=== PATIENT | female | born 1960 | race Two or more races ===

== ENCOUNTER 2018-03-14 10:00 | Day surgery (SDC) | payer OTHER ==
[~2018-03-14] VITALS: Ht 162.6 cm; Wt 83.9 kg
[~2018-03-14 10:00] MED LIST: AMBIEN10 MG PO; CIPRO750 MG PO; Colace 100MG PO; METFORMIN HCL500 MG PO; NEURONTIN PO; NEURONTIN800 MG PO; TYLENOL W-CODEI1 TAB PO
[2018-03-15] MEDS ORDERED: DOCUSATE SODIU100 MG PO (08:21)
[2018-03-15] MEDS ORDERED: GABAPENTIN800 MG PO (08:21)
[2018-03-15] MEDS ORDERED: CLONAZEPAM1 MG PO (08:22)
[2018-03-15] MEDS ORDERED: CIPROFLOXACIN750 MG PO (08:22)
[2018-03-15] MEDS ORDERED: PERCOCET 5-3251 EACH PO (08:22)
== END 2018-03-15 08:00 | disposition home or self-care (01) ==
LOC: CIR.AMB 10:00 → SURH 12:00 → EDSTATUS 12:00 → SURH 16:45 → O/R 18:37 → PED 18:37 → CIR.AMB 03-15 08:00 → PED 03-15 13:37
DX: M48.061 Spinal stenosis, lumbar region without neurogenic claudication (principal)

== ENCOUNTER 2024-08-01 11:18 | Inpatient (IN) | payer OTHER ==
[~2024-08-01] VITALS: Ht 121.9 cm; Wt 72.6 kg
[~2024-08-01 11:18] MED LIST changes: +BIOTIN1 M1; +CATAFLAM; +CIPROFLOXACIN750 MG PO; +CLONAZEPAM1 MG PO; +DOCUSATE SODIU100 MG PO; +ESTAZOLAM2 MG PO; +GABAPENTIN800 MG PO; +MULTI VITAMIN1 EACH PO; +PERCOCET 5-3251 EACH PO; +TRAMADOL HCL E100 MG; +VITAMIN C100 MG; +ZANAFLEX4 M1 PO
[2024-08-06] MEDS ORDERED: VANCOMYCIN HCL 1,000 MG VIAL ONE ×2 (08:21→14:51)
[2024-08-06] MEDS ORDERED: METHYLPREDNISOLONE SOD SUCC 125 MG VIAL ONE ×3 (08:21→20:04)
[2024-08-06] MEDS ORDERED: MEDROLPACK PO (14:50)
[2024-08-06] MEDS ORDERED: ACETAMINOPHEN-1 EAC2 PO (14:50)
[2024-08-06] MEDS ORDERED: BACTRIM DS TAB1 EACH PO (14:50)
[2024-08-06] MEDS ORDERED: ZOFRAN8 MG PO (14:51)
[2024-08-06] MEDS ORDERED: COLACE100 MG PO (14:51)
[2024-08-06] MEDS ORDERED: GABAPENTIN100 M2 PO (14:51)
[2024-08-06] MEDS ORDERED: METHYLPREDNISOLONE ACETATE 80 MG/ML VIAL ONE (14:51)
[2024-08-06] MEDS ORDERED: NEURONTIN800 MG PO (14:52)
[2024-08-06] MEDS ORDERED: PROMETHAZINE HCL 50 MG/ML AMPUL IM PRN (15:15)
[2024-08-06] MEDS ORDERED: 0.9 % SODIUM CHLORIDE 1,000 ML IV SCH (15:15)
[2024-08-06] MEDS ORDERED: ENALAPRILAT DIHYDRATE 1.25 MG/ML VIAL IV PRN (15:15)
[2024-08-06] MEDS ORDERED: METHYLPREDNISOLONE SOD SUCC 125 MG VIAL IV ONE ×2 (16:45)
[2024-08-06] MEDS ORDERED: METHYLPREDNISOLONE ACETATE 80 MG/ML VIAL IM ONE ×2 (16:45)
[2024-08-06] MEDS ORDERED: VANCOMYCIN HCL 1,000 MG VIAL IV ONE (16:45)
[2024-08-06] MEDS ORDERED: VANCOMYCIN HCL 1,000 MG VIAL SPEPROC ONE (16:45)
[2024-08-06] MEDS ORDERED: VANCOMYCIN HCL 1,000 MG VIAL IR ONE (16:45)
[2024-08-06] MEDS ORDERED: FAMOtidine 20 MG TABLET PO SCH (17:00)
[2024-08-06] MEDS ORDERED: DOCUSATE SODIUM 100MG CAP PO SCH (17:00)
[2024-08-06] MEDS ORDERED: METHYLPREDNISOLONE SOD SUCC 125 MG VIAL IV SCH (17:00)
[2024-08-06] MEDS ORDERED: MetFORMIN HCL 500 MG TABLET PO SCH (17:00)
[2024-08-06] MEDS ORDERED: CEFAZOLIN SODIUM 1,000 MG in 0.9 % SODIUM CHLORIDE 50 ML IV SCH (17:00)
[2024-08-06] MEDS ORDERED: MORPHINE SULFATE 4 MG/ML CARTRIDGE IV SCH (17:00)
[2024-08-06] MEDS ORDERED: ACETAMINOPHEN 500 MG GEL..CAP PO SCH (18:00)
[2024-08-06] MEDS ORDERED: MORPHINE SULFATE 4 MG/ML VIAL IV ONE ×2 (18:35→19:05)
[2024-08-06] MEDS ORDERED: MEPERIDINE HCL 25 MG/ML AMPUL IV ONE (19:35)
[2024-08-06] MEDS ORDERED: CEFAZOLIN SODIUM 1,000 MG VIAL ONE (20:04)
[2024-08-06] MEDS ORDERED: VANCOMYCIN HCL 1,000 MG VIAL IV SCH (21:00)
[2024-08-06] MEDS ORDERED: GABAPENTIN 800 MG TABLET PO SCH (21:00)
[2024-08-06 21:34] VITALS: BP 126/67; O2SAT 98
[2024-08-06 22:32] VITALS: O2SAT 97
[2024-08-07] VITALS (9 sets, daily range): BP systolic 117–142; BP diastolic 56–68; O2SAT 90–99
[2024-08-07] MEDS ORDERED: SODIUM CHLORIDE 0.45 % 1,000 ML IV SCH
[2024-08-07 05:36] LABS: HEMATOCRIT 34.9 % (36.0-45.00); MEAN CELL VOLUME 89.5 fL (80.00-100.00); MEAN CORPUSCULAR HEMOGLOBIN 30.2 pg (27.00-32.0); MEAN CORPUSCULAR HGB CONC 33.7 g/dl (32.0-36.0); PLATELET COUNT 298 K/uL (150-450); RED CELL DISTRIBUTION WIDTH 13.5 % (11.5-14.5)
[2024-08-07 05:37] LABS: HEMOGLOBIN 11.8 g/dL (12.0-15.00)
[2024-08-07] MEDS ORDERED: ACETAMINOPHEN WITH CODEINE 1 UDTAB TABLET PO SCH (06:00)
[2024-08-07 06:02] LABS: CALCIUM 9.1 mg/dL (8.5-10.1); CREATININE SERUM 0.48 mg/dL (0.55-1.02); GFR 131.48; POTASSIUM 3.69 mEq/L (3.5-5.1)
[2024-08-07] MEDS ORDERED: TAMSULOSIN HCL 0.4 MG CAP PO SCH (09:00)
[2024-08-07] MEDS ORDERED: CEFAZOLIN SODIUM 1,000 MG VIAL ONE (16:10)
[2024-08-08] VITALS (8 sets, daily range): BP systolic 121–152; BP diastolic 60–70; O2SAT 93–100
[2024-08-09 02:31] VITALS: BP 149/70; O2SAT 92
[2024-08-09 06:59] LABS: HEMATOCRIT 32.2 % (36.0-45.00); MEAN CELL VOLUME 90.8 fL (80.00-100.00); MEAN CORPUSCULAR HGB CONC 33.1 g/dl (32.0-36.0); PLATELET COUNT 277 K/uL (150-450); RED BLOOD COUNT 3.54 M/uL (4.00-6.00); RED CELL DISTRIBUTION WIDTH 13.9 % (11.5-14.5)
[2024-08-09 07:04] LABS: HEMOGLOBIN 10.7 g/dL (12.0-15.00); MEAN CORPUSCULAR HEMOGLOBIN 30.2 pg (27.00-32.0)
[2024-08-09 07:25] LABS: CALCIUM 8.8 mg/dL (8.5-10.1); CREATININE SERUM 0.46 mg/dL (0.55-1.02); GFR 138.1; POTASSIUM 4.07 mEq/L (3.5-5.1)
[2024-08-09] MEDS ORDERED: ACETAMINOPHEN WITH CODEINE 1 UDTAB TABLET PO SCH (07:45)
[2024-08-09 10:58] VITALS: BP 135/77
== END 2024-08-09 17:49 | disposition home or self-care (01) | DRG 428 ==
LOC: MEDI 08-06 05:33 → O/R 08-06 05:33 → SURH 08-06 10:15 → MEDI 08-06 20:59
PROVIDERS: Student in an Organized Health Care Education/Training Program; ADMIT Orthopaedic Surgery Orthopaedic Surgery of the Spine; ATTEND Orthopaedic Surgery Orthopaedic Surgery of the Spine
PROC: 0SG10K1 Fusion of 2 or more Lumbar Vertebral Joints with Nonautologous Tissue Substitute, Posterior Approach, Posterior Column, Open Approach (ICD-10-PCS; 2024-08-06)
PROC: 0SG1070 Fusion of 2 or more Lumbar Vertebral Joints with Autologous Tissue Substitute, Anterior Approach, Anterior Column, Open Approach (ICD-10-PCS; 2024-08-06)
PROC: 0ST20ZZ Resection of Lumbar Vertebral Disc, Open Approach (ICD-10-PCS; 2024-08-06)
PROC: 0QB30ZZ Excision of Left Pelvic Bone, Open Approach (ICD-10-PCS; 2024-08-06)
PROC: 07DR0ZZ Extraction of Iliac Bone Marrow, Open Approach (ICD-10-PCS; 2024-08-06)
PROC: 4A1104G Monitoring of Peripheral Nervous Electrical Activity, Intraoperative, Open Approach (ICD-10-PCS; 2024-08-06)
PROC: 4A12X4Z Monitoring of Cardiac Electrical Activity, External Approach (ICD-10-PCS; 2024-08-06)
PROC: XRGC0R7 Fusion of 2 or more Lumbar Vertebral Joints using Custom-Made Anatomically Designed Interbody Fusion Device, Open Approach, New Technology Group 7 (ICD-10-PCS; principal; 2024-08-06 10:15)
DX: M48.062 Spinal stenosis, lumbar region with neurogenic claudication (principal); M51.360 Other intervertebral disc degeneration, lumbar region with discogenic back pain only; M43.16 Spondylolisthesis, lumbar region; M54.16 Radiculopathy, lumbar region; E11.9 Type 2 diabetes mellitus without complications; E78.5 Hyperlipidemia, unspecified; Z79.84 Long term (current) use of oral hypoglycemic drugs; Z88.0 Allergy status to penicillin; Z88.8 Allergy status to other drugs, medicaments and biological substances